=== PATIENT | male | born 1985 | race Caucasian/White ===

== ENCOUNTER 2016-09-17 22:53 | Emergency (ER) | payer SELFPAY ==
[~2016-09-17] VITALS: Ht 172.7 cm; Wt 68.8 kg
[2016-09-17 23:10] VITALS: TEMP 97.9; Ht 172.7 cm; Wt 68.8 kg
--- NOTE | 2016-09-17 23:20 | NUR ---
provider jesenia, conner in room to see pt
--- NOTE | 2016-09-17 23:29 | ERPDOC ---
Departure Disposition Decision Date: September 18, 2016 Disposition Decision Time: 00:18 Disposition: 01 DISCHARGED HOME, SELF-CARE Impression Impression Impression: Primary Impression: Rib pain on right side Severity: Moderate Condition: Stable Seen By: Mid-level only Patient Instructions: Rib Contusion (ED) Problems/Meds/Labs Reviewed?: Yes Medications reviewed and manag: Yes Additional Instructions: Take the Ibuprofen as prescribed on a schedule and may use the Choudrant as needed for severe pain. Use a pillow to help splint your ribs as well. If this is not improving in the next 1-2 days then please follow up with your primary care provider for reevaluation. Follow up care ordered?: Yes Mental Status: Alert Scripts Ibuprofen (Ibuprofen) 600 Mg Tablet 1 TAB PO Q8H Y for PAIN, #21 TAB 0 Refills Prov: BUZZ SPIVEY BARRINGTON 09/18/16 HPI - Chest Pain General Stated Complaint: RIB PAIN/DIFFICULTY BREATHING Time Seen by Provider: 23:22 Source: patient Exam Limitations: no limitations HPI - Chest Pain Initial Comments He was lifting weights a few days ago and had sudden onset of right sided anterior chest pain. He has had some soreness in this area since then. Pain is worse with deep breathing. He has taken some Ibuprofen at home without relief of pain. Denies any SOA or cough or fever. No history of pain in the right ribs at all. Occurred At: home Onset/Timing: Rapid Duration: other (2 days ago) Activities at Onset/Context: none Location: anterior R 1 - area of pain Quality: sharp Associated Symptoms: DENIES: abdominal pain, back pain, diaphoresis, dizziness , edema, fast HR, fatigue, fever/chills, headache, heartburn, irregular HR, nausea/vomiting, rash, shortness of breath, slow HR, swelling/lump in chest, syncope, weakness Nitro Today/Relief: no nitro taken today Aspirin Treatment Today: unknown Allergies: Coded Allergies: No Known Allergies (Unverified , 09/18/16) Past History Past Medical History Pt denies signifigant PMH Surgical History Denies Surgeries Family History Family History: Negative Social History Smoking Status: Never smoker Substance Use Type: does not use Alcohol Intake: none Review of Systems Constitutional Constitutional: DENIES: chills, dizziness, fatigue, fever, weakness Cardiovascular Cardiac: chest pain, DENIES: dyspnea on exertion, orthopnea Rhythm/Rate: DENIES: irregular beat, palpitations Pulmonary Respiratory: DENIES: cough, dyspnea, sputum, tachypnea GI Upper Abdomen: DENIES: nausea, pain, vomiting Lower Abdomen: DENIES: constipation, diarrhea, pain Integumentary Skin: DENIES: rash Neurological General: DENIES: headache, numbness, tingling, weakness Physical Exam General General Nourishment: well nourished, well developed, appears stated age, no acute distress, adult, thin General Body Habitus: well groomed Vitals and Pain First Documented Vital Signs Date Time Temp Pulse Resp B/P Pulse Ox O2 Delivery O2 Flow Rate FiO2 09/17/16 23:10 97.9 73 18 116/56 95 Room Air Weight: Kilograms: Height (feet): Height (inches): Triage Pain Scale: RN VS reviewed by Provider: Yes Normal Exams: Neck: Full range of motion, without adenopathy, JVD, bruits or thyromegaly Chest/Resp: Clear all smith, with good airflow, and symmetry bilaterally CV: Regular rate and rhythm, without murmur or gallop, Pulses 2+ all extremities, capillary refill, <2 seconds all ext., no pedal edema noted Abdomen: Bowel sounds positive, soft, non-tender, non-distended, no hepatosplenomegaly, masses or bruits noted Lymphatic: No lymphadenopathy, or lymphedema noted Integumentary: No rashes, hives, or bruising noted Neurologic: Patient is alert, and oriented Psychiatric: Patient exhibits, appropriate attention, emotion and affect Musculoskeletal (brief) Musculoskeletal Brief: FOUND: tenderness (He does report TTP in the anterior chest and along the right lateral chest as well. This is intercostal as well as along the ribs. No crepitius or subcutaneous emphysema noted. ) Differential Diagnoses Considering: Costochondritis, Rib Fracture, Muscle Spasm Progress Results/Orders Orders Medications Current ED Medications Acetaminophen/ Hydrocodone Bitart (NORCO 5 (PrePack)) 1 pack O ONCE SENT HOME Last administered on 09/18/16t 00:44; Start 09/18/16 at 00:30; Stop 09/18/16 at 00:31; Status DC Progress Progress No fracture identified on xray today. Will have him use Choudrant as needed for pain. Splinting as needed. Follow up with primary care provider for reevaluation if any further concerns. Xray Xray : Reason for Exam: rib pain Xray: Ribs R Interpretation: Normal BUZZ SPIVEY APRN September 17, 2016 23:29
--- NOTE | 2016-09-17 23:55 | NUR ---
return from [facility] and went to [facility] for the rest of his ed visit
[2016-09-18] MEDS ORDERED: IBUP-2067 PO (00:20)
[2016-09-18] MEDS ORDERED: HYDROCODONE/APAP 5/325 (PrePack) SENT HOME ONE (00:30)
[2016-09-18 00:44] VITALS: BP 110/55; PULSE 75; RESP 16; O2SAT 99
--- NOTE | 2016-09-18 00:44 | NUR ---
depart nursing staff reviewed dismissal instructions with pt. pt is given prepack. pt leaves ambulatory to ed registration desk. mirror was called to pick him up.
--- NOTE | 2016-09-18 08:08 | DI ---
Indication: ITS.REASON: right rib pain PROCEDURE: RIBS RIGHT WITH AP CHEST: Encounter: Initial Comparison: None FINDINGS: Chest: The lungs are clear. There is no abnormal airspace opacity, pleural effusion or pneumothorax identified. The heart size, pulmonary vasculature and mediastinum are within normal limits. AP and oblique views of the right ribs: No displaced rib fracture is seen. IMPRESSION: No acute cardiopulmonary abnormality. .
== END 2016-09-18 00:44 | disposition home or self-care (01) ==
LOC: ED 22:53
DX: R07.81 Pleurodynia (principal)